=== PATIENT | male | born 1940 | race Asian ===

== ENCOUNTER 2017-12-19 15:57 | Emergency (ER) | payer OTHER ==
--- NOTE | 2017-12-19 16:00 | PDOC ---
Rapid Medical Evaluation Chief Complaint: Injury Medical Evaluation: Allergies Allergy/AdvReac Type Severity Reaction Status Date / Time No Known Allergies Allergy Verified 11/17/15 22:01 12/19/17 15:58 I have performed a brief in-person evaluation of this patient. The patient presents with a chief complaint of: RLE pain s/p mechanical fall this am, difficult bearing weight Pertinent physical exam findings:no swelling/deformity I have ordered the following:knee/leg xray The patient will proceed to the ED for further evaluation. Discharge Disposition - Diagnosis Leg pain Qualifiers: Laterality: right Qualified Code(s): M79.604 - Pain in right leg - Referrals Referrals: Mei Carter MD [Primary Care Provider] - - Patient Instructions - Post Discharge Activity
[2017-12-19 16:13] VITALS: BP 129/90; PULSE 61; TEMP 98.2; BMI 24.2
--- NOTE | 2017-12-19 17:54 | PDOC ---
History of Present Illness - General History Source: Patient Exam Limitations: No Limitations - History of Present Illness Initial Comments: 12/19/17 17:54 The patient is a 77 year old male, with a significant past medical history of 2 cardiac stent placements, who presents to the emergency department with, pain in the right knee and hip. As per patient, he was working in his garden this morning when he tripped without falling. He reports pain to initially have dorsal knee pain which he rubbed with [place]. As the day progressed, he reports anterior knee pain radiating down to his right calf with right hip pain. He reports his right hip hurts only when moving. He denies any back pain. He denies any recent fevers, chills, headache or dizziness. He denies any recent nausea, vomit, diarrhea or constipation. He denies any recent chest pain or shortness of breath. He denies any recent dysuria, frequency, urgency or hematuria. Allergies: NKA Past surgical history: 2 cardiac stent placements. Social History: Nonsmoker. Denies EtOH use and recreational drug use. Primary Care Physician: Dr. Carter <Marisol Owen - Last Filed: 12/19/17 17:54> - General History Source: Patient Exam Limitations: No Limitations <Randa Zavala - Last Filed: 12/19/17 18:01> - General Chief Complaint: Injury Stated Complaint: INJURY, LEG PAIN Time Seen by Provider: 12/19/17 16:01 Past History <Marisol Owen - Last Filed: 12/19/17 17:54> - Past Medical History COPD: No - Immunization History Immunization Up to Date: Yes - Suicide/Smoking/Psychosocial Hx Smoking History: Never smoked Have you smoked in the past 12 months: No Information on smoking cessation initiated: No Hx Alcohol Use: No Drug/Substance Use Hx: No Substance Use Type: None <Randa Zavala - Last Filed: 12/19/17 18:01> - Past Medical History Allergies/Adverse Reactions: Allergies Allergy/AdvReac Type Severity Reaction Status Date / Time No Known Allergies Allergy Verified 12/19/17 16:01 Home Medications: Ambulatory Orders Aspirin [ASA -] 81 mg PO DAILY 11/17/15 Atenolol [Tenormin -] 50 mg PO DAILY 11/17/15 Losartan Potassium [Cozaar -] 50 mg PO DAILY 11/17/15 Simvastatin [Zocor -] 40 mg PO HS 11/17/15 Tramadol HCl 50 mg PO TID #12 tablet MDD 3 12/19/17 Review of Systems - Review of Systems Able to Perform ROS?: Yes Comments:: 12/19/17 17:54 CONSTITUTIONAL: Absent: fever, no chills, no fatigue EYES: Absent: visual changes ENT: Absent: ear pain, no sore throat CARDIOVASCULAR: Absent: chest pain, no palpitations RESPIRATORY: Absent: cough, no SOB GI: Absent: abdominal pain, no nausea, no vomiting, no constipation, no diarrhea GENITOURINARY: Absent: dysuria, no frequency, no hematuria MUSKULOSKELETAL: Present: Right knee pain. Right hip pain. Absent: back pain, no arthralgia, no myalgia SKIN: Absent: rash NEURO: Absent: headache All Other Systems: Reviewed and Negative <Marisol Owen - Last Filed: 12/19/17 17:54> *Physical Exam - Vital Signs Last Vital Signs Temp Pulse Resp BP Pulse Ox 98.2 F 61 17 129/90 99 12/19/17 15:59 12/19/17 15:59 12/19/17 15:59 12/19/17 15:59 12/19/17 15:59 - Physical Exam Comments: 12/19/17 17:55 GENERAL: Well-appearing, well-nourished. No apparent distress. HEENT: Normocephalic, atraumatic. PERRL, EOM intact. CARDIOVASCULAR: Normal S1, S2. Regular rate and rhythm. PULMONARY: Clear to auscultation bilaterally. ABDOMEN: Soft, non-distended, non-tender. EXTREMITIES: No calf tenderness. No fluid appreciated in the knee. Normal ROM in all four extremities. No gross deformities. SKIN: Warm, dry. No rash NEUROLOGICAL: No focal neurological deficits. <Marisol Owen - Last Filed: 12/19/17 17:54> - Vital Signs Last Vital Signs Temp Pulse Resp BP Pulse Ox 98.2 F 61 17 129/90 99 12/19/17 15:59 12/19/17 15:59 12/19/17 15:59 12/19/17 15:59 12/19/17 15:59 <Randa Zavala - Last Filed: 12/19/17 18:01> Medical Decision Making - Medical Decision Making 12/19/17 17:57 A/P: Patient status post trip today, did not fall twisted his right leg now with pain to right knee and right lower leg. She reports today was in his garden and almost fell catching himself now with pain to right leg. X-ray performed of right knee and right lower extremity, negative for acute fracture dislocation. I have placed patient in a knee immobilizer, he now has steady gait will follow-up with Dr. Rodriguez. <Randa Zavala - Last Filed: 12/19/17 18:01> *DC/Admit/Observation/Transfer - Attestations Scribe Attestion: 12/19/17 17:56 Documentation prepared by Marisol Owen, acting as chief medical physicist for Randa Zavala NP. <Marisol Owen - Last Filed: 12/19/17 17:54> - Discharge Dispostion Decision to Admit order: No <Randa Zavala - Last Filed: 12/19/17 18:01> Diagnosis at time of Disposition: Leg pain Qualifiers: Laterality: right Qualified Code(s): M79.604 - Pain in right leg - Discharge Dispostion Disposition: HOME Condition at time of disposition: Stable - Prescriptions Prescriptions: Tramadol HCl 50 mg PO TID #12 tablet MDD 3 - Referrals Referrals: Mei Carter MD [Primary Care Provider] - Bakari Rodriguez MD [Staff Physician] - Frederick Thompson MD [Staff Physician] - - Patient Instructions Printed Discharge Instructions: How to Prevent Falls Additional Instructions: 1. Please return to the emergency department with any redness, swelling, increased pain, or any other concerns. 2. Keep splint on. 3. Please follow up in the office of within a week if pain persists. 4. No weightbearing 5. Ice and elevate when at rest. 6. Tylenol for pain - Post Discharge Activity
== END 2017-12-19 18:36 | disposition home or self-care (01) ==
LOC: SUPCPDRO 15:57 → JERFT 15:57
PROC: 2W3QXYZ Immobilization of Right Lower Leg using Other Device (ICD-10-PCS; principal; 2017-12-19)
DX: M79.604 Pain in right leg (principal); W18.49XA Other slipping, tripping and stumbling without falling, initial encounter; Y93.H2 Activity, gardening and landscaping; Y92.017 Garden or yard in single-family (private) house as the place of occurrence of the external cause; Y99.8 Other external cause status; I10 Essential (primary) hypertension; E78.00 Pure hypercholesterolemia, unspecified; Z79.82 Long term (current) use of aspirin
CPT/HCPCS: 29530; 73562-TC-RT-FY; 73590-TC-RT-FY; 99281-25

== ENCOUNTER 2023-03-31 23:02 | Observation (INO) | payer OTHER ==
[2023-03-31] MEDS ORDERED: ASPIRIN 81 MG CHEWABLE TABLETS PO ONE (23:35)
[2023-03-31] MEDS ORDERED: ASPIRIN 81 MG CHEWABLE TABLETS ONE (23:46)
[2023-04-01 00:26] LABS: BASO % 0.7 % (0-2.0); EOS % 1.6 % (0-4.5); HEMATOCRIT 41.9 % (35.4-49); HEMOGLOBIN 14.2 GM/dL (11.7-16.9); LYMPH % 19.3 % (8-40); MCH 29.5 pg (25.7-33.7); MEAN CELL VOLUME 86.8 fl (80-96); MEAN PLT VOLUME 8.4 fl (7.5-11.1); MONO % 8.4 % (3.8-10.2); PLATELET COUNT 150 10^3/uL (134-434); RBC 4.82 M/mm3 (4.00-5.60); RDW 13.1 % (11.9-15.9); WHITE BLOOD COUNT 7.3 K/mm3 (4.0-10.0)
[2023-04-01 00:32] LABS: INR 1.15 (0.83-1.09); PROTHROMBIN TIME (PATIENT) 13.3 SEC (9.7-13.0)
[2023-04-01 00:34] LABS: ACTIVATED PTT 32.5 SECONDS (25.2-36.5)
[2023-04-01 00:50] LABS: POTASSIUM 4.1 mmol/L (3.5-5.1)
[2023-04-01 00:52] LABS: CALCIUM 9.3 mg/dL (8.5-10.1)
[2023-04-01 00:53] LABS: ALBUMIN 3.8 g/dl (3.4-5.0); BLOOD UREA NITROGEN 26.1 mg/dL (7-18); MAGNESIUM 2.2 mg/dL (1.8-2.4)
[2023-04-01 00:56] LABS: CREATININE 1.4 mg/dL (0.55-1.3)
[2023-04-01 00:57] LABS: BILIRUBIN,TOTAL 0.4 mg/dL (0.2-1); TOT PROT 7.3 g/dl (6.4-8.2)
[2023-04-01] MEDS ORDERED: DOCUSATE SODIUM 100 MG CAPSULE (FP) PO PRN (04:10)
[2023-04-01] MEDS ORDERED: ACETAMINOPHEN 325 MG TABLET (FP) PO PRN (04:10)
[2023-04-01 06:31] VITALS: RESP 18
[2023-04-01 06:52] VITALS: BMI 24.7
[2023-04-01 09:03] VITALS: BP 156/84; PULSE 80; TEMP 97.9
[2023-04-01] MEDS ORDERED: VALSARTAN 40 MG TABLET PO SCH (10:00)
== END 2023-04-01 11:14 | disposition home or self-care (01) ==
LOC: JER 23:02 → JERBED 04-01 03:05 → J4S 04-01 06:24
PROVIDERS: ADMIT Internal Medicine; ATTEND Internal Medicine
DX: I25.10 Atherosclerotic heart disease of native coronary artery without angina pectoris (principal); R07.9 Chest pain, unspecified; E78.5 Hyperlipidemia, unspecified; I11.9 Hypertensive heart disease without heart failure; H91.90 Unspecified hearing loss, unspecified ear; I25.2 Old myocardial infarction; Z95.5 Presence of coronary angioplasty implant and graft
CPT/HCPCS: 36415; 71045-TC-FY; 80053; 82550; 83735; 84484; 85025; 85610; 85730; 93005; 93010; 99285-25; G0378